=== PATIENT | male | born 1955 | race African-American/Black ===

== ENCOUNTER → 2020-01-14 | Outpatient (CLI) | payer SELFPAY ==
--- NOTE | 2020-01-14 10:09 | RAD ---
Examination: Ultrasound abdomen limited HISTORY: History of right upper quadrant pain COMPARISON: None available. FINDINGS: The liver length measures 12.8 cm. The common bile duct measures 3.2 mm in diameter. The gallbladder wall thickness measures 1.7 mm. The liver length measures 12.8 cm the common bile duct measures 3.2 mm in diameter. The right kidney measures 11.7 cm in length.The aorta, IVC are not well-visualized due to bowel gas. The pancreas is not well-visualized due to bowel gas. IMPRESSION: Unremarkable visualized exam. Electronically signed by: Car Antunez MD (01/14/2020 10:06 AM) [id number]
[2020-01-14 10:54] LABS: BASO % 1 % (0-3); EOS # 0.1 x10^3/uL (0.0-0.7); EOS % 4 % (0-3); HEMATOCRIT 38.8 % (39.0-53.0); HEMOGLOBIN 12.9 g/dL (13.0-17.5); LYMPH % 30 % (24-48); MEAN CORPUSCULAR HEMOGLOBIN 30 pg (25-35); MEAN CORPUSCULAR HGB CONC 33 g/dL (31-37); MEAN CORPUSCULAR VOLUME 90 fL (79-100); MONO # 0.4 x10^3/uL (0.0-1.1); MONO % 11 % (0-9); NEUT # 1.9 x10^3uL (1.8-7.7); NEUT % 55 % (31-73); PLATELET COUNT 266 x10^3/uL (140-400); RED BLOOD COUNT 4.29 x10^6/uL (4.30-5.70); RED CELL DISTRIBUTION WIDTH 13.4 % (11.5-14.5); WHITE BLOOD COUNT 3.4 x10^3/uL (4.0-11.0)
[2020-01-14 11:00] LABS: ALBUMIN 3.3 g/dL (3.4-5.0); ALBUMIN/GLOBULIN RATIO 0.7 (1.0-1.7); ALK PHOS 47 U/L (46-116); ALT (SGPT) 21 U/L (16-63); AMYLASE 117 U/L (25-115); ANION GAP 13 (6-14); AST (SGOT) 13 U/L (15-37); BLOOD UREA NITROGEN 112 mg/dL (8-26); BUN/CREATININE RATIO 9 (6-20); CALCIUM 8.8 mg/dL (8.5-10.1); CARBON DIOXIDE 19 mmol/L (21-32); CHLORIDE 103 mmol/L (98-107); DIG 1.6 ng/dL (0.9-2.0); GFR 4.7; GLUCOSE 137 mg/dL (70-99); LIPASE 319 U/L (73-393); SODIUM 135 mmol/L (136-145); TOTAL BILIRUBIN 0.2 mg/dL (0.2-1.0); TOTAL PROTEIN 8.1 g/dL (6.4-8.2)
[2020-01-14 11:41] LABS: POTASSIUM 6.5 mmol/L (3.5-5.1)
[2020-01-14 20:41] LABS: FREE T4 0.91 ng/dL (0.76-1.46); THYROID STIM HORMONE (TSH) 0.817 uIU/mL (0.358-3.740)
[2020-01-15 00:07] LABS: HEMOGLOBIN A1C 7.4 % (4.8-5.6)
== END | disposition home or self-care (01) ==
LOC: US 09:15
PROVIDERS: ATTEND Family Medicine
DX: R10.11 Right upper quadrant pain (principal)
CPT/HCPCS: 36415; 76705; 80053; 80162; 82150; 83036; 83690; 84439; 84443; 85025; 86705; 86709; 86803; 87340